=== PATIENT | male | born 1955 | race African-American/Black ===

== ENCOUNTER 2017-05-08 06:02 | Emergency (ER) | payer SELFPAY ==
[2017-05-08 06:18] VITALS: BP 123/74; BMI 20.7
--- NOTE | 2017-05-08 06:43 | DR.GENAD ---
HPI - PCP Primary Care Physician: NFD - Complaint/Symptoms Chief Complaint Doctors Comments: Pain level 10, very severe, aggravated by movement onset this AM. Chief Complaint:: LEFT HIP PAIN, "I WOKE UP WITH MY HIP HURTING AND I COULD NOT GET OUT OF BED. MY HIP LOCKED UP." - Source History Provided: Patient, EMS - Mode of Arrival Mode of Arrival: EMS - Timing Onset of Chief Complaint: 05/08/17 PMH - PMH Past Medical History: Yes Past Medical History: Seizures Past Surgical History: No - Family History History of Family Medical Conditions: No - Social History Type of Tobacco Use: Cigarettes Does any household member use tobacco: Yes Alcohol Use: DAILY Do you use any recreational Drugs:: Yes (THC) Lives With: Spouse Lives Where: Home - infectious screening Have you traveled outside the country in the last 6 months?: No Isolation: Standard ROS - Review of Systems Eyes: No Symptoms Reported ENTM: No Symptoms Reported Respiratoy: No Symptoms Reported Cardiovascular: No Symptoms Reported Gastrointestinal/Abdominal: No Symptoms Reported Genitourinary: No Symptoms Reported Neurological: No Symptoms Reported Musculoskeletal: No Symptoms Reported Integumentary: No Symptoms Reported Hematologic/Lymphatic: No Symptoms Reported Endocrine: No Symptoms Reported Psychiatric: No Symptoms Reported All Other Systems: Reviewed and Negative PE - Vital Signs Vitals: Temperature 97.3 F Pulse Rate 57 Respiratory Rate 18 Blood Pressure 123/74 O2 Sat by Pulse Oximetry 100 - General Limitations: No Limitations General Appearance: Alert, In No Apparent Distress - Head Head Exam: Normal Inspection, Atraumatic - ENT ENT Exam: Normal Exam, Normal Oropharynx External Ear Exam: Normal External Inspection TM/Canal Exam: Bilateral Normal Nose Exam: Normal Nose Exam Mouth Exam: Normal Inspection Throat Exam: Normal Inspection - Neck Neck Exam: Normal Inspection - Chest Chest Inspection: Normal Inspection, Symmetric Chest Wall Rise - Respiratory Respiratory Exam: Normal Lung Sounds Bilat Respiratory Exam: Bilateral Clear to Auscultation - Cardiovascular Cardiovascular Exam: Regular Rate, Normal Rhythm - Abdominal Exam Abdominal Exam: Normal Inspection, Normal Bowel Sounds Abdominal Tenderness: negative: RUQ, RLQ, LUQ, LLQ, Epigastrium, Suprapubic, Diffuse, Mild, Moderate, Severe, Other - Extremities Extremities Exam: Other (left hip patient will not move) - Back Back Exam: Normal Inspection - Neurologic Neurological Exam: Alert, Oriented X3, CN II-XII Intact - Psychiatric Psychiatric Exam: Normal Affect - Skin Skin Exam: Warm, Dry, Intact ROR - XRAY XRAY Interpreted by: Radiologist (CT Left HIP: Geographic focus of abnormal density in the left femeral head suspicious for developing avascular necrosis. 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
--- NOTE | 2017-05-08 06:51 | CT ---
HISTORY: Left hip pain, decreased range of motion Study: CT left hip without contrast Comparison: None. No plain films obtained Technique: Axial non contrast images with coronal and sagittal reformats. Dose reduction procedures were used with MA/kv adjusted for body size. Findings: The left SI joint is normal. The visualize left sacrum is normal. The visualize left pelvic bones ar e intact. The left hip joint is intact. No joint erosions are identified. There is a geographic focu s of abnormal density in the femoral head suspicious for developing avascular necrosis. This could b e better evaluated with MRI. No left hip fracture is identified. The visualized proximal femur is in tact. No periarticular soft tissue abnormality is identified. IMPRESSION: Geographic focus of abnormal density in the left femoral head suspicious for developing avascular ne crosis. This could be confirmed with MRI. Reported By:
[2017-05-08] MEDS ORDERED: NORCO 7.5/325 MG TAB ONE (07:33)
[2017-05-08] MEDS ORDERED: NORCO 7.5/325 MG TAB PO ONE (07:39)
== END 2017-05-08 07:41 | disposition home or self-care (01) ==
LOC: ER 06:02
DX: M87.052 Idiopathic aseptic necrosis of left femur (principal); M25.552 Pain in left hip
CPT/HCPCS: 73700; 96365; 96374; 99283

== ENCOUNTER 2017-10-24 12:56 | Emergency (ER) | payer SELFPAY ==
[2017-10-24 13:12] VITALS: BP 133/81; BMI 22.0
[2017-10-24] MEDS ORDERED: DILAUDID INJ IM ONE (14:33)
--- NOTE | 2017-10-24 14:37 | DR.GENAD ---
HPI - PCP Primary Care Physician: ALLAN , - Complaint/Symptoms Chief Complaint Doctors Comments: Patient presents with complaint of left hip pain 08/07; sharp,aggravated by pressure, has been ongoing but worse today; diagnosed with avascular necrosis of femoral head (left) . He is in the process of trying to get some medical support for surgery. Chief Complaint:: PT C/O LEFT HIP PAIN AND BACK ,, PT HAS HAS HX OF VASCULAR NECROSIS PT STATES " I HAVE NO MONEY NO DOCTOR AND NO INSURANCE". Self Treatment fo Chief Complaint: NONE - Source History Provided: Patient - Mode of Arrival Mode of Arrival: Ambulatory - Timing Onset of Chief Complaint: 05/07/17 PMH - PMH Past Medical History: Yes Past Medical History: Seizures Past Surgical History: No - Family History History of Family Medical Conditions: No - Social History Does patient currently use any type of tobacco product: No Have you used tobacco products in the last 12 months: No Type of Tobacco Use: None Does any household member use tobacco: No Alcohol Use: None Do you use any recreational Drugs:: No Lives With: Family Lives Where: Home - infectious screening In the last 2 months have you had wt loss of >10#?: NO Have you had fever, night sweats or hemotysis?: No Have you traveled outside the country in the last 6 months?: No Isolation: Standard ROS - Review of Systems Constitutional: No Symptoms Reported Eyes: No Symptoms Reported ENTM: No Symptoms Reported Respiratoy: No Symptoms Reported Cardiovascular: No Symptoms Reported Gastrointestinal/Abdominal: No Symptoms Reported Genitourinary: No Symptoms Reported Neurological: No Symptoms Reported Musculoskeletal: Hip (left hip pain) Integumentary: No Symptoms Reported Hematologic/Lymphatic: No Symptoms Reported Endocrine: No Symptoms Reported Psychiatric: No Symptoms Reported All Other Systems: Reviewed and Negative PE - Vital Signs Vitals: Temperature 98.0 F Pulse Rate 82 Respiratory Rate 18 Blood Pressure 133/81 O2 Sat by Pulse Oximetry 97 - General Limitations: No Limitations General Appearance: Alert, In No Apparent Distress - Head Head Exam: Normal Inspection, Atraumatic - Eyes Eye exam: Normal Appearance, PERRL - Neck Neck Exam: Normal Inspection, Full ROM - Chest Chest Inspection: Normal Inspection, Symmetric Chest Wall Rise - Respiratory Respiratory Exam: Normal Lung Sounds Bilat Respiratory Exam: Bilateral Clear to Auscultation - Cardiovascular Cardiovascular Exam: Regular Rate, Normal Rhythm - Abdominal Exam Abdominal Exam: Normal Inspection, Normal Bowel Sounds Abdominal Tenderness: negative: RUQ, RLQ, LUQ, LLQ, Epigastrium, Suprapubic, Diffuse, Mild, Moderate, Severe, Other - Extremities Extremities Exam: Normal Inspection, Tenderness (to movement of left lower extremity) - Back Back Exam: Normal Inspection - Neurologic Neurological Exam: Alert, Oriented X3, CN II-XII Intact - Psychiatric Psychiatric Exam: Normal Affect, Normal Mood - Skin Skin Exam: Warm, Dry, Intact Course - Treatment Treatment: Reviewed CT of Hip dated 05/08/17 - Reevaluation 1st: Improved - Diagnosis 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
[2017-10-24] MEDS ORDERED: DILAUDID INJ ONE (14:41)
== END 2017-10-24 15:08 | disposition home or self-care (01) ==
LOC: ER 13:16
DX: M87.052 Idiopathic aseptic necrosis of left femur (principal)
CPT/HCPCS: 96372; 99282